=== PATIENT | female | born 1960 | race Caucasian/White ===

== ENCOUNTER 2025-05-25 08:42 | Emergency (ER) | payer MEDICARE, OTHER, SELFPAY ==
[2025-05-25 08:59] VITALS: BP 135/73
[2025-05-25 10:17] VITALS: BP 144/52
[2025-05-25 10:20] VITALS: BP 144/52; BMI 29.7
--- NOTE | 2025-05-25 10:20 | ED.GENMED ---
History of Present Illness
General
Chief Complaint: Skin Problem
Time Seen by Provider: 05/25/25 09:34
History of Present Illness
History of Present Illness:
65-year-old female without significant past medical history presenting to the emergency department for concern of rash. Patient reports yesterday started to notice scattered red rash to her body. Reports that it is itchy. Denies any new
detergents or exposures. She does note that she had a COVID-vaccine on Tuesday, 5 days ago, however has never reaction to the COVID-vaccine. Denies any respiratory symptoms. Denies any known history of allergic reactions. Does note that it is
concentrated to her inguinal region, however has also extended to her extremities, face, back. Denies fever. Denies additional acute medical complaints
Phy Exam
Physical Exam
Physical Exam:
General: Well-appearing, no clinical signs of dehydration, nontoxic and in no acute distress
HEENT: protecting airway
Neck: appears supple
CV: Normal heart rate, regular rhythm
Resp: No accessory muscle use, no increased work of breathing, lungs clear to auscultation bilaterally
Abd: No distention
Extremities: No deformities, no swelling
Neuro: alert, no focal neurologic deficit
: deferred
Rectal: deferred
Psych: Normal affect
Skin: Scattered red lesions to the body, macular quality.
Course
Orders/Labs/Results
Orders:
Orders
05/25/25 10:08
Prednisone [Deltasone] 50 mg PO NOW STA
Vital Signs
Initial and Last Documented VS:
Initial Vital Signs
Temp Pulse Resp BP Pulse Ox
98.3 F 63 16 135/73 98
05/25/25 08:59 05/25/25 08:59 05/25/25 08:59 05/25/25 08:59 05/25/25 08:59
Last Documented Vital Signs
Temp Pulse Resp BP Pulse Ox
98.5 F 59 20 144/52 98
05/25/25 10:20 05/25/25 10:20 05/25/25 10:20 05/25/25 10:20 05/25/25 10:23
MDM/Problems Addressed
MDM/Problems Addressed:
65-year-old female without significant past medical history presenting for rash. Vital signs on arrival are normal.
On exam patient is resting comfortably, no acute distress or discomfort. Patient afebrile, nontoxic. Do not suspect that rash is systemic. Do not suspect infectious quality. Ultimately suspect exposure, dermatitis versus allergic. Rash is
pruritic in quality, again likely allergic in quality. No signs of bedbugs. Will treat patient with oral steroid. Rash is most profound in the inguinal region as well as the axillas, so fungal component is also consideration. No present concern
for anaphylaxis, no respiratory symptoms, no GI symptoms, no airway compromise. Will also prescribe a clotrimazole cream in the setting of possible fungus. Ultimately feel stable for discharge with continued outpatient supportive therapy. Advised
outpatient PCP follow-up. Return precautions discussed and patient verbalized understanding
*Pulse Oximetry
SaO2: 98
Oxygen Mode of Delivery: Room air
Patient hypoxic: no
*Critical Care Note
Total Time (30-74mins, 75-104mins- exclusive of procedures): Not Applicable
ED Attending Note
-
Portions of this chart may have been created with voice recognition software.� Occasional wrong word or��sound alike� substitutions may have occurred due to the inherent limitations of voice recognition software.
Discharge Plan
Departure
Prescriptions:
No Action
No Current Medications
0
Interventions
Interventions:
*Risk Screen - Suicide Last Done: 05/25/25 08:59
*General Assessment Last Done: 05/25/25 10:20
*Neglect/Abuse Screening Last Done: 05/25/25 08:59
*ED- Fall Risk Assessment Last Done: 05/25/25 10:20
*ED COVID-19 Vaccine History Last Done: 05/25/25 10:20
ED-Skin Assessment Last Done: 05/25/25 10:20
Discharge Date and Time
Print Language: KOREAN
[2025-05-25] MEDS: DELTASONE 50 MG PO (10:28)
== END 2025-05-25 10:57 | disposition home or self-care (01) ==
LOC: EMR 08:42
PROVIDERS: EMERGENCY PHYSICIAN Student in an Organized Health Care Education/Training Program; FAMILY PHYSICIAN Family Medicine
DX: R21 Rash and other nonspecific skin eruption (principal); L29.9 Pruritus, unspecified
CPT/HCPCS: 99282; 96360; 99283